=== PATIENT | female | born 1955 | race American Indian/Alaskan Native ===

== ENCOUNTER → 2024-05-04 15:51 | Outpatient (CLI) | payer MEDICARE, SELFPAY | PROVIDERS: Visit Provider Nurse Practitioner Family | DX: R30.0 Dysuria (principal) | CPT/HCPCS: 87077; 87086 ==

== ENCOUNTER 2024-11-07 13:42 | Emergency (ER) | payer MEDICARE, SELFPAY ==
[2024-11-07] VITALS (15 sets, daily range): BP systolic 158–206; BP diastolic 72–91; PULSE 52–66; RESP 15–27; TEMP 36.6; O2SAT 94–98; BMI 25.6
--- NOTE | 2024-11-07 13:48 | DI.RAD.S_ITS ---
PROCEDURE: XR CHEST 1V INDICATIONS: chest pain TECHNIQUE: One view of the chest was acquired. COMPARISON: None. FINDINGS: Surgical changes and devices: None. Lungs and pleura: Lungs are clear. No pleural effusions or pneumothorax. Mediastinum: Mediastinal contours appear normal. Heart size is normal. Bones and chest wall: No suspicious bony lesions. Overlying soft tissues appear unremarkable. IMPRESSION: No acute cardiopulmonary abnormality is seen. Dictated by: Jarvis Ashley M.D. on 11/07/2024 at 13:08 Approved by: Jarvis Ashley M.D. on 11/07/2024 at 13:09
--- NOTE | 2024-11-07 13:50 | EKG_ITS ---
[address] [address] Test Date: 2024-11-07 Pat Name: Ghada Arthur Department: Room: Gender: Female [employer]: OLEG : 1955 Requested By: Order Number: [id number] Reading MD: Satya Gardiner MD Measurements Intervals [place] Rate: 58 P: 54 CO: 140 QRS: 69 QRSD: 92 T: 28 QT: 412 QTc: 404 Interpretive Statements Sinus bradycardia Possible Left atrial enlargement Electronically Signed On 11-08-2024 8:47:56 PST by Satya Gardiner MD
[2024-11-07 14:10] LABS: Add Manual Diff / Slide Review NO; Basophils Absolute Auto 0 /uL (0-100); Basophils Percent Auto 0.3 % (0-2); Eosinophils Absolute Auto 100 /uL (0-450); Eosinophils Percent Auto 0.6 % (2-4); Hematocrit 40.9 % (36-46); Hemoglobin 13.9 g/dL (12.0-16.0); Lymphocytes Absolute Auto 2900 /uL (1100-4500); Lymphocytes Percent Auto 29.9 % (25-40); Mean Corpuscular Hemoglobin 29.4 PG (26-34); Mean Corpuscular Volume 86.5 fL (80-100); Monocytes Absolute Auto 800 /uL (0-900); Neutrophils Absolute Auto 6000 /uL (1500-7000); Neutrophils Percent Auto 61.2 % (50-75); Platelet Count 479 X10^3/uL (150-400); Red Blood Cell Count 4.73 X10^6/uL (4.0-5.2); Red Cell Distribution Width 13.3 % (11.6-14.8); White Blood Cell Count 9.9 X10^3/uL (4.5-11.0)
[2024-11-07 14:11] LABS: Prothrombin Time 11.1 SECONDS (9.4-12.5)
[2024-11-07 14:13] LABS: PTT Partial Thromboplastin Tim 33 SECONDS (25.1-36.5)
[2024-11-07 14:21] LABS: Alanine Aminotransferase 28 IU/L (<35); Albumin 4.5 g/dL (3.5-5.0); Albumin Globulin Ratio 1.3 (1.0-2.8); Alkaline Phosphatase 117 U/L (38-126); Aspartate Aminotransferase 30 IU/L (14-36); BUN Creatinine Ratio 16.7 (6-22); Bilirubin Total 0.5 mg/dL (0.2-1.3); Blood Urea Nitrogen 16 mg/dL (7-17); Calcium 9.3 mg/dL (8.4-10.2); Carbon Dioxide 26 mmol/L (22-32); Chloride 104 mmol/L (98-107); Creatine Kinase 46 U/L (30-135); Estimated Glomerular Filt Rate > 60 mL/min (>60); Globulin 3.4 g/dL (1.7-4.1); Glucose 112 mg/dL (80-110); HEMOLYSIS < 15 (0-50); Lipase 147 U/L (23-300); Magnesium 2.5 mg/dL (1.6-2.3); Potassium 4.4 mmol/L (3.4-5.1); Sodium 137 mmol/L (137-145); Total Protein 7.9 g/dL (6.3-8.2)
[2024-11-07 14:33] LABS: NT-proBNP (BNP-Adult 18+) 44 pg/mL (<125); Troponin I < 0.012 ng/mL (0.01-0.034)
[2024-11-07] MEDS: ASPIRIN 81 MG CHEW TAB 324 MG PO (14:39)
[2024-11-07 15:39] LABS: D Dimer 671 ng/ml (<500)
--- NOTE | 2024-11-07 16:08 | EKG_ITS ---
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
--- NOTE | 2024-11-07 16:27 | ED.CHESTPAIN ---
HPI - Chest Pain General Chief Complaint: Chest Pain Stated Complaint: chest pain, congestion Time Seen by Provider: 11/07/24 15:16 Source: patient Mode of arrival: Wheelchair History of Present Illness HPI narrative: Patient is a 69-year-old female with history of hypertension which is difficult to control her normal blood pressure is 215, presenting today with chest pain and shortness of breath. She reports she was ill October 25 for a couple of days but overall felt like she got better. However over the last 4 days she reports some constant chest pain. She has some positive orthopnea and shortness of breath with exertion. She denies any body aches. She has 90% left carotid stenosis which is being worked up as an outpatient. She has no numbness tingling or weakness. She has no known coronary artery disease. Related Data Home Medications Medication Instructions Recorded Confirmed amlodipine 5 mg tablet 5 mg PO DAILY 05/04/24 11/07/24 aspirin 81 mg tablet,delayed 81 mg PO DAILY 05/04/24 11/07/24 release (Adult Aspirin Regimen) metoprolol succinate 25 mg 25 mg PO DAILY 05/04/24 11/07/24 tablet,extended release 24 hr lisinopril 30 mg tablet 60 mg PO 1XD 11/07/24 11/07/24 Allergies Allergy/AdvReac Type Severity Reaction Status Date / Time Sulfa (Sulfonamide Allergy Unknown Verified 11/07/24 13:22 Antibiotics) Patient History Social History Smoking Status: Never smoker Smoking Status: Never smoker Exam Initial Vital Signs Initial Vital Signs: Vital Signs Temperature 98 F 11/07/24 13:45 Pulse Rate 66 11/07/24 13:45 Respiratory Rate 17 11/07/24 13:45 Blood Pressure 206/91 H 11/07/24 13:45 Pulse Oximetry 97 11/07/24 13:45 Oxygen Delivery Method Room Air 11/07/24 13:45 GENERAL: Alert 69-year-old female appears to not feel and in no acute distress. HEENT: Head atraumatic,EOMI, pupils reactive, face symmetric, moist mucous membranes CARDIOVASCULAR: Regular rate and rhythm without murmurs, rubs or gallops. RESPIRATORY: Breath sounds equal bilaterally, no wheezes rales or rhonchi. No significant cough. ABDOMEN: Soft, nontender. Normoactive bowel sounds all 4 quadrants. No guarding or rebound. EXTREMITIES: Normal range of motion, no clubbing or edema. Neurovascularly intact NEUROLOGICAL: Alert and oriented x4.Normal gait and speech. Cranial nerves II through XII grossly intact. SKIN: Warm, dry, no laceration, no petechiae, no rashes or lesions. Course Orders Ordered: ED Orders 11/07/24 13:48 XR chest 1V Stat EKG-12 Lead Stat 11/07/24 13:57 Complete Blood Count AUTO DIFF Stat Comprehensive Metabolic Panel Stat D Dimer Stat Lipase Stat Magnesium Stat NT-proBNP (BNP-Adult 18+) Stat PTT Partial Thromboplastin [place] Stat Prothrombin Time INR Stat Troponin & CK Cardiac Panel Stat 11/07/24 16:00 Trop I [Troponin I] Stat 11/07/24 16:08 EKG-12 Lead Routine 11/07/24 16:46 Covid-19 + FLU A/B + RSV - PCR Stat 11/07/24 17:43 CT angio chest PE protocol Stat Discontinued Medications Albuterol (Albuterol 2.5 Mg/3 Ml Neb (Adult)) 2.5 mg INH NOW ONE Stop: 11/07/24 16:39 Last Admin: 11/07/24 17:59 Dose: 2.5 mg Documented By: LEATHA Albuterol (Albuterol Hfa Prepack) 1 box MISC DIRECTED ONE Stop: 11/07/24 18:45 Last Admin: 11/07/24 19:10 Dose: 1 box Documented By: RIKKI Aspirin (Aspirin 81 Mg Chew Tab) 324 mg PO NOW ONE Stop: 11/07/24 13:49 Last Admin: 11/07/24 14:39 Dose: 243 mg Documented By: RIKKI Vital Signs Vital signs: Vital Signs - 8 hr 11/07/24 13:45 11/07/24 14:41 11/07/24 14:42 Temperature 98 F Pulse Rate 66 58 L 61 Respiratory Rate 17 21 22 Blood Pressure 206/91 H 172/72 H Pulse Oximetry 97 97 Oxygen Delivery Method Room Air Room Air 11/07/24 15:00 11/07/24 15:00 11/07/24 15:30 Temperature Pulse Rate 53 L 52 L Respiratory Rate 18 15 Blood Pressure 176/79 H Pulse Oximetry 94 96 Oxygen Delivery Method Room Air 11/07/24 15:31 11/07/24 15:31 11/07/24 16:00 Temperature Pulse Rate 56 L 56 L Respiratory Rate 19 21 Blood Pressure 158/77 H Pulse Oximetry 95 96 Oxygen Delivery Method 11/07/24 16:01 11/07/24 16:01 11/07/24 16:30 Temperature Pulse Rate 58 L 52 L Respiratory Rate 19 18 Blood Pressure 203/86 H Pulse Oximetry 96 96 Oxygen Delivery Method Room Air 11/07/24 16:31 11/07/24 16:31 11/07/24 17:00 Temperature Pulse Rate 57 L Respiratory Rate Blood Pressure 185/81 H 177/81 H Pulse Oximetry 97 Oxygen Delivery Method Room Air 11/07/24 17:00 11/07/24 17:30 11/07/24 17:30 Temperature Pulse Rate 52 L 56 L Respiratory Rate 17 17 Blood Pressure 166/79 H Pulse Oximetry 96 96 Oxygen Delivery Method 11/07/24 18:00 11/07/24 18:00 11/07/24 18:02 Temperature Pulse Rate 59 L 59 L Respiratory Rate 20 27 H Blood Pressure 195/80 H Pulse Oximetry 98 98 Oxygen Delivery Method Room Air 11/07/24 18:02 11/07/24 19:16 Temperature Pulse Rate 60 Respiratory Rate 16 Blood Pressure 189/91 H Pulse Oximetry 96 Oxygen Delivery Method MDM - Chest Pain Lab Data 11/07/24 13:57 11/07/24 13:57 Labs: Lab Results 11/07/24 11/07/24 11/07/24 Range/Units 13:57 16:00 16:46 WBC 9.9 (4.5-11.0) X10^3/uL RBC 4.73 (4.0-5.2) X10^6/uL Hgb 13.9 (12.0-16.0) g/dL Hct 40.9 (36-46) % MCV 86.5 (80-100) fL MCH 29.4 (26-34) PG MCHC 34.0 (30-36) % RDW 13.3 (11.6-14.8) % Plt Count 479 H (150-400) X10^3/uL Neut % (Auto) 61.2 (50-75) % Lymph % (Auto) 29.9 (25-40) % [place] % (Auto) 8.0 (3-14) % Eos % (Auto) 0.6 L (2-4) % Baso % (Auto) 0.3 (0-2) % Neut # (Auto) 6000 (6693-1032) /uL Lymph # (Auto) 2900 (0076-9794) /uL [place] # (Auto) 800 (0-900) /uL Eos # (Auto) 100 (0-450) /uL Baso # (Auto) 0 (0-100) /uL PT 11.1 (9.4-12.5) SECONDS INR 1.0 (0.9-1.3) APTT 33 (25.1-36.5) SECONDS D-Dimer 671 H (<500) ng/ml Sodium 137 (137-145) mmol/L Potassium 4.4 (3.4-5.1) mmol/L Chloride 104 (98-107) mmol/L Carbon Dioxide 26 (22-32) mmol/L BUN 16 (7-17) mg/dL Creatinine 0.96 (0.52-1.04) mg/dL Estimated GFR > 60 (>60) mL/min BUN/Creatinine Ratio 16.7 (6-22) Glucose 112 H (80-110) mg/dL Calcium 9.3 (8.4-10.2) mg/dL Magnesium 2.5 H (1.6-2.3) mg/dL Total Bilirubin 0.5 (0.2-1.3) mg/dL AST 30 (14-36) IU/L ALT 28 (<35) IU/L Alkaline Phosphatase 117 (38-126) U/L Total Creatine Kinase 46 (30-135) U/L Troponin I < 0.012 < 0.012 (0.01-0.034) ng/mL NT-Pro-B Natriuret Pep 44 (<125) pg/mL Total Protein 7.9 (6.3-8.2) g/dL Albumin 4.5 (3.5-5.0) g/dL Globulin 3.4 (1.7-4.1) g/dL Albumin/Globulin Ratio 1.3 (1.0-2.8) Lipase 147 (23-300) U/L SARS-CoV-2 (PCR) Negative (Negative) Influenza A (RT-PCR) Flu a negative (NEGATIVE) Influenza B (RT-PCR) Flu b negative (NEGATIVE) RSV (PCR) Negative (Negative) Imaging Data Chest x-ray: Radiologist's Impression: PROCEDURE: XR CHEST 1V INDICATIONS: chest pain TECHNIQUE: One view of the chest was acquired. COMPARISON: None. FINDINGS: Surgical changes and devices: None. Lungs and pleura: Lungs are clear. No pleural effusions or pneumothorax. Mediastinum: Mediastinal contours appear normal. Heart size is normal. Bones and chest wall: No suspicious bony lesions. Overlying soft tissues appear unremarkable. IMPRESSION: No acute cardiopulmonary abnormality is seen. Dictated by: Jarvis Ashley M.D. on 11/07/2024 at 13:08 CT scan - chest: Radiologist's Impression: PROCEDURE: CT ANGIO CHEST PE PROTOCOL INDICATIONS: Short of breath with + dimer TECHNIQUE: After the administration of intravenous contrast, 2 mm thick sections acquired from the pulmonary apices to the posterior costophrenic angles. 3-dimensional maximum intensity projection (MIP) coronal and sagittal reformats were then acquired through the thorax. For radiation dose reduction, the following was used: automated exposure control, adjustment of mA and/or kV according to patient size. COMPARISON: [facility], , XR CHEST 1V, 11/07/2024, 13:53. FINDINGS: Image quality: Diagnostic. Pulmonary arteries: Pulmonary arteries are normal in size, and demonstrate no intraluminal filling defects to suggest central pulmonary embolism. Lower Neck: No enlarged lymph nodes. Thyroid: No thyroid nodules which require sonographic follow up, per consensus guidelines. Axillae: No enlarged lymph nodes. Chest Wall: Right breast postoperative change is seen. Bones: Unremarkable. Lungs and Pleura: No pneumothorax or pleural effusions. Mild dependent atelectasis is seen. No consolidation or suspicious nodules. Heart: Heart size is normal. No pericardial effusion. Thoracic Vessels: No aortic aneurysm. Mediastinum and Linda: No enlarged lymph nodes. Esophagus: No wall thickening. No hiatal hernia. Upper Abdomen: Visualized upper abdomen solid organs and bowel loops appear normal. IMPRESSION: No pulmonary embolus. No acute cardiopulmonary process. Additional findings: Right breast postoperative change Dictated by: Jarvis Ashley M.D. on 11/07/2024 at 17:28 ECG Data Attestation: I personally reviewed and interpreted this ECG as follows: Interpretation: Normal sinus rhythm rate 58 FL interval 140 QRS [address] changes no evidence of pericarditis no FL depression or shortened FL interval MDM Narrative Medical decision making narrative: MDM CC: Chest pain Complicating co-morbidities: Uncontrolled hypertension, 90% occluded left carotid artery, Medical records reviewed: Walk-in clinic visit today recommended go to ED but was never seen Differential considered: Viral illness congestive heart failure pulmonary embolisms acute coronary syndrome, pericarditis Exam documented above, pertinent findings include: Alert 69-year-old female breath sounds are clear but she is sitting up no evidence of fluid overload no peripheral edema Lab Test results independently reviewed as above. Pertinent findings: WBC 9.9 hemoglobin 13.9 hematocrit 40.9 platelets 479 D-dimer 671, troponin negative x2, BNP 44 Sodium 137 potassium 4.4 chloride 104 carbon dioxide 26 BUN 16 creatinine 0.9, magnesium 2.5 Bilirubin 0.5 AST 30 ALT 28 alk-phos 117 Viral panel pending Independently reviewed EKG as above No ischemia no evidence of pericarditis Imaging studies independently reviewed: No acute cardiopulmonary process CT angio no pulmonary embolus Treatments: Albuterol given Re-evaluations: Patient does feel better after albuterol feels like she can lay down Discussion: Patient is 69-year-old female generally not feeling well. Blood work is overall reassuring without evidence of sepsis. She has no leukocytosis. BNP is within normal limits. D-dimer is 671. She was have a positive YEARS score does age correct however with her ongoing shortness of breath and no other significant explanation do think CT is reasonable. CT fortunately does not show pulmonary embolism. I suspect that she is some sort of viral illness causing some reactive airway disease. She had a good response with albuterol she was given an inhaler and a spacer to go home Discharge Plan Departure Patient Disposition: Home Clinical Impression: Viral illness Instructions: DI for Viral Upper Respiratory Infection -- Adult Activity Restrictions/Additional Instructions: *You have been diagnosed with upper respiratory infection *What to do: At this time no need for antibiotics *Continue to take medications as directed albuterol 1-2 puffs if needed for shortness of breath *Follow up with your primary care provider in 2-3 days or call [phone] *Return to ER if you should have increasing shortness of breath confusion weakness or any new, worsening or concerning symptoms Prescriptions: No Action metoprolol succinate 25 mg tablet extended release 24 hr 25 mg PO DAILY amlodipine 5 mg tablet 5 mg PO DAILY aspirin [Adult Aspirin Regimen] 81 mg tablet,delayed release (DR/EC) 81 mg PO DAILY lisinopril 30 mg tablet 60 mg PO 1XD Referrals: Miscellaneous,Doctor, MD [Primary Care Provider] - Stand Alone Forms: Patient Portal/API/Survey
[2024-11-07 17:01] LABS: Troponin I < 0.012 ng/mL (0.01-0.034)
[2024-11-07 17:32] LABS: Influenza A - CEPHEID Flu A NEGATIVE (NEGATIVE); Influenza B - CEPHEID Flu B NEGATIVE (NEGATIVE); Respiratory Syncytial Virus Negative (Negative)
[2024-11-07 17:38] LABS: COVID-19 CEPHEID 4-PLEX PCR Negative (Negative)
--- NOTE | 2024-11-07 17:43 | DI.CT.S_ITS ---
PROCEDURE: CT ANGIO CHEST PE PROTOCOL INDICATIONS: Short of breath with + dimer TECHNIQUE: After the administration of intravenous contrast, 2 mm thick sections acquired from the pulmonary apices to the posterior costophrenic angles. 3-dimensional maximum intensity projection (MIP) coronal and sagittal reformats were then acquired through the thorax. For radiation dose reduction, the following was used: automated exposure control, adjustment of mA and/or kV according to patient size. COMPARISON: [facility], CR, XR CHEST 1V, 11/07/2024, 13:53. FINDINGS: Image quality: Diagnostic. Pulmonary arteries: Pulmonary arteries are normal in size, and demonstrate no intraluminal filling defects to suggest central pulmonary embolism. Lower Neck: No enlarged lymph nodes. Thyroid: No thyroid nodules which require sonographic follow up, per consensus guidelines. Axillae: No enlarged lymph nodes. Chest Wall: Right breast postoperative change is seen. Bones: Unremarkable. Lungs and Pleura: No pneumothorax or pleural effusions. Mild dependent atelectasis is seen. No consolidation or suspicious nodules. Heart: Heart size is normal. No pericardial effusion. Thoracic Vessels: No aortic aneurysm. Mediastinum and Linda: No enlarged lymph nodes. Esophagus: No wall thickening. No hiatal hernia. Upper Abdomen: Visualized upper abdomen solid organs and bowel loops appear normal. IMPRESSION: No pulmonary embolus. No acute cardiopulmonary process. Additional findings: Right breast postoperative change Dictated by: Jarvis Ashley M.D. on 11/07/2024 at 17:28 Approved by: Jarvis Ashley M.D. on 11/07/2024 at 17:29
[2024-11-07] MEDS: ALBUTEROL 2.5 MG/3 ML NEB (ADULT) INH (17:59)
[2024-11-07] MEDS: ALBUTEROL HFA PREPACK 1 BOX MISC (19:10)
== END 2024-11-07 19:16 | disposition home or self-care (01) ==
PROVIDERS: Emergency Provider Emergency Medicine
DX: J06.9 Acute upper respiratory infection, unspecified (principal); R06.02 Shortness of breath; R79.89 Other specified abnormal findings of blood chemistry; R00.1 Bradycardia, unspecified; R07.9 Chest pain, unspecified; R42 Dizziness and giddiness
CPT/HCPCS: 0241U; 36415; 71045; 71275; 80053; 82550; 83690; 83735; 83880; 84484; 85025; 85379; 85610; 85730; 93005; 93010; 94640; 99284; J7613; Q9967

== ENCOUNTER → 2025-03-17 08:09 | Outpatient (CLI) | payer MEDICARE, SELFPAY ==
--- NOTE | 2025-03-17 08:11 | DI.NM.S_ITS ---
PROCEDURE: NM EXERCISE TREADMILL NON NUC COMPARISON: None. INDICATIONS: Palpitations/Essential hypertension FINDINGS: Patient exercised per the standard [place] protocol. Total exercise time was 5 minutes and 9 seconds. Test was terminated secondary to fatigue. Maximum heart rate achieved is 119 bpm which is 79% of max predicted heart rate. Maximum blood pressure was 170/[place] [address]. STEPHEN +12%. 7.0 METS. No ischemic changes noted. Occasional PVCs noted during the stress phase. No ventricular tacky arrhythmias noted. Normal heart rate and blood pressure response to exercise. 4 out of 10 chest pain voiced at peak stress. This chest pain resolved upon cessation of exercise. IMPRESSION: 1. Positive exercise treadmill stress test due to the presence of exercise-induced chest pain which resulted in early termination of this test. Dictated by: Idris Monte M.D. on 03/17/2025 at 17:36 Approved by: Idris Monte M.D. on 03/17/2025 at 17:40
--- NOTE | 2025-03-17 08:12 | DI.ECHO.S_ITS ---
[facility] : : [address] : : [place] : : [address] : : Phone: [phone] Echocardiogram Report + + :Name: VISHAL VENCES Study Date: 03/17/2025 Height: 62 in : :[facility] ReadingLocation: Weight: 140 lb : : Gender: Female BSA: 1.6 m2 : :: 1955 Age: 69 yrs BP: 139/83 mmHg: :Reason For Study: PALPITATIONS, HYPERTENSION : :Ordering Physician: DAWIT MONTE Performed By: Denisa Evans : :Referring: DAWIT MONTE : + + Interpretation Summary 1. The left ventricular contractility is normal. Estimated ejection fraction is greater than 60% without segmental wall motion abnormalities. No LVH. No diastolic dysfunction. 2. The right ventricular contractility is normal. 3. All cardiac chambers are of normal size. 4. Mild aortic insufficiency. 5. No obvious intracardiac shunts. 6. No obvious intracardiac masses nor thrombi. 7. No hemodynamically significant pericardial effusion. 8. Low right-sided filling pressures. Conclusion: Normal biventricular function with mild aortic insufficiency. Procedure: A two-dimensional transthoracic echocardiogram with color flow and Doppler was performed. The study quality was technically adequate. There is no prior echocardiogram noted for this patient. The patient was in sinus bradycardia with heart rates between 50-64 bpm during the exam. Left Ventricle: The left ventricle is normal in size and wall thickness. The ejection fraction is estimated to be 60-65%. Right Ventricle: The right ventricle is normal in size and function. Atria: The left atrial size is normal. Right atrial size is normal. There is no Doppler evidence for an interatrial shunt. Mitral Valve: The mitral valve leaflets appear normal. There is no evidence of stenosis, fluttering, or prolapse. There is trace mitral regurgitation. Aortic Valve: The aortic valve is trileaflet. The aortic valve opens well. There is no aortic valve stenosis. There is mild aortic regurgitation. Tricuspid Valve: The tricuspid valve leaflets are thin and pliable. There is trace tricuspid regurgitation. Pulmonary artery pressures cannot be estimated because of the lack of a measurable TR jet velocity but the IVC suggests a CVP of around 3 mmHg. Pulmonic Valve: The pulmonic valve leaflets are thin and pliable; valve motion is normal. There is no pulmonic valvular regurgitation. Great Vessels: The aortic root is normal size. The dimensions of the ascending aorta are normal. The inferior vena cava appeared normal. Pericardium/ Pleura There is no pericardial effusion. There is no pleural effusion. MMode/2D Measurements & Calculations LVIDd: 4.3 cm LVOT diam: 2.0 cm LVIDs: 2.8 cm Ao root diam: 2.4 cm FS: 34.6 % asc Aorta Diam: 2.9 cm IVSd: 0.80 cm Ao Arch Diam (Prox Trans): 2.5 cm LVPWd: 0.72 cm LV shepard. diameter/BSA (cm/m^2): 2.6 LV sys. diameter/BSA (cm/m^2): 1.7 LA A2 area: 14.7 cm2 RA long axis: 4.4 cm LA A4 area: 14.5 cm2 RA area: 13.5 cm2 LA length (vol): 4.3 cm RA vol: 34.9 ml LA vol: 41.7 ml RA : 21.3 ml/m2 LA vol index: 25.4 ml/m2 IVC diam: 1.2 cm RVD1 (basal): 2.9 cm RVD2 (mid): 2.4 cm TAPSE: 1.7 cm Doppler Measurements & Calculations Ao V2 max: 109.9 cm/sec LVOT Max Altaf: 105.8 cm/sec Ao V2 mean: 81.2 cm/sec LV V1 max P.5 mmHg Ao max P.8 mmHg LV V1 VTI: 28.9 cm Ao mean P.9 mmHg MARLI(I,D): 3.1 cm2 Ao V2 VTI: 30.0 cm MARLI(V,D): 3.1 cm2 sev ratio: 0.96 MARLI indexed to BSA (cm^2/m^2): 1.9 MV E max altaf: 60.1 cm/sec PA V2 max: 79.5 cm/sec MV A max altaf: 74.1 cm/sec PA V2 mean: 53.6 cm/sec MV E/A: 0.81 PA mean P.3 mmHg Med Peak E' Altaf: 6.0 cm/sec PA pr(Accel): 4.5 mmHg E/E' med: 10.1 Lat Peak E' Altaf: 7.3 cm/sec E/E' lat: 8.2 E/e' average: 9.1 MV dec time: 0.18 sec SV(LVOT): 92.9 ml Reading Physician:GEM
== END ==
PROVIDERS: Referring Provider Internal Medicine; Visit Provider Internal Medicine
DX: R00.2 Palpitations (principal); I10 Essential (primary) hypertension; I35.1 Nonrheumatic aortic (valve) insufficiency; R07.89 Other chest pain
CPT/HCPCS: 93017; 93306